=== PATIENT | female | born 1995 | race Caucasian/White ===

== ENCOUNTER 2018-11-27 20:43 | Emergency (ER) | payer BC, OTHER ==
[2018-11-27 20:53] VITALS: BP 149/86; PULSE 79; RESP 20; TEMP 99.1
[2018-11-27] MEDS ORDERED: cefTRIAXone 1,000 MG VIAL (IM USE) IM STA (21:33)
[2018-11-27] MEDS ORDERED: SULFAMETH-TMP DS STARTER PACK 2 TAB BTL PO STA (21:34)
--- NOTE | 2018-11-27 21:36 | ED ---
Skin/Abscess/FB HPI - General Chief complaint: Skin/Abscess/Foreign Body Stated complaint: Abscess on lt leg Time Seen by Provider: 11/27/18 21:15 Source: patient, family Mode of arrival: ambulatory Limitations: no limitations - History of Present Illness Initial comments: 23-year-old female no past medical history presents today for chief complaint of rash right lower thigh. Patient states that she did shave her legs last night, she states she woke up this morning she had a dime size area of erythema. Patient states over the day the redness has spread. Patient was concerned infection left work to present for evaluation. Patient denies any fever, chills, night sweats. She states the area is mildly itchy and tender to touch. She states it is warm to palpation. Patient denies history of MRSA. Patient denies any pain of the knee with range of motion of the knee. Patient denies any knee involvement. Area of erythema is just proximal to the knee joint. Patient outlined the area prior to presentation. Patient denies any recent antibiotics or hospitalizations. Review of system negative. Upon arrival patient appears well, nontoxic vital signs within acceptable limits. - Related Data Home Medications Medication Instructions Recorded Confirmed Escitalopram [Lexapro] 5 mg PO DAILY@1300 11/27/18 11/27/18 Previous Rx's Medication Instructions Recorded Cephalexin [Keflex] 500 mg PO Q6HR 7 Days #28 cap 11/27/18 Sulfamethox-Tmp 800-160Mg [Bactrim 1 tab PO Q12HR 7 Days #14 tab 11/27/18 DS 800-160 mg] Allergies Allergy/AdvReac Type Severity Reaction Status Date / Time No Known Allergies Allergy Verified 11/27/18 21:04 Review of Systems ROS Statement: Those systems with pertinent positive or pertinent negative responses have been documented in the HPI. ROS Other: All systems not noted in ROS Statement are negative. Past Medical History Past Medical History: No Reported History History of Any Multi-Drug Resistant Organisms: None Reported Past Surgical History: No Surgical Hx Reported Past Psychological History: Depression Smoking Status: Never smoker Past Alcohol Use History: None Reported Past Drug Use History: None Reported General Exam - General Exam Comments Initial Comments: General: The patient is awake and alert, in no distress, and does not appear acutely ill. Eye: Pupils are equal, round and reactive to light, extra-ocular movements are intact. No nystagmus. There is normal conjunctiva bilaterally. No signs of icterus. Ears, nose, mouth and throat: There are moist mucous membranes and no oral lesions. Neck: The neck is supple, there is no tenderness or JVD. Cardiovascular: There is a regular rate and rhythm. No murmur, rub or gallop is appreciated. Respiratory: Lungs are clear to auscultation, respirations are non-labored, breath sounds are equal. No wheezes, stridor, rales, or rhonchi. Musculoskeletal: Normal ROM, no tenderness. Strength 5/5. Sensation intact. Pulses equal bilaterally 2+. Neurological: A&O x 3. CN II-XII intact, There are no obvious motor or sensory deficits. Coordination appears grossly intact. Speech is normal. Skin: Skin is warm and dry and no rashes or lesions are noted. 5x5in area of erythema over the right anterior distal thigh, just proximal to the knee joint, no involvement of joint. Warm to palpation, no abscess. No break in skin. Blanchable. No crepitus to palpation of the skin. No bullae or vesicles. Area of erythema confluent. Psychiatric: Cooperative, appropriate mood & affect, normal judgment. Limitations: no limitations Course Vital Signs 11/27/18 20:51 Temperature 99.1 F Pulse Rate 79 Respiratory 20 Rate Blood Pressure 149/86 O2 Sat by Pulse 99 Oximetry Medical Decision Making - Medical Decision Making 23-year-old presenting with erythema of the right distal thigh. Findings consistent with cellulitis. Area outlined no erythema outside of outlined markers. Patient has no constitutional symptoms. Vital signs within acceptable limits, patient afebrile. Patient was given IM injection of ceftriaxone. Will be discharged with Keflex and Bactrim. Patient was given strict return parameters for immediate return for spreading of erythema outside of the line. Patient given starter pack of bactrim. Pt given outpatient RX for bactrim and keflex. A simple clearance of abiding by antibiotic instruction. Patient verbalized understanding. At this time feel patient is reliable and will return for any worsening symptoms. Patient appears well and nontoxic and is stable for outpatient treatment. I discussed the case with attending provider Dr. Gamboa who is agreeable with plan and discharge. Disposition Clinical Impression: Cellulitis of left lower extremity Disposition: HOME SELF-CARE Condition: Good Instructions (If sedation given, give patient instructions): Cellulitis (ED) Additional Instructions: Please use medication as discussed. Please follow-up with family doctor in the next 2 days. Please return to emergency room if the symptoms increase or worsen as discussed if the erythema extends outside the lines drawn this evening by tomorrow afternoon return immediately to the emergency department Prescriptions: Sulfamethox-Tmp 800-160Mg [Bactrim DS 800-160 mg] 1 tab PO Q12HR 7 Days #14 tab Cephalexin [Keflex] 500 mg PO Q6HR 7 Days #28 cap Is patient prescribed a controlled substance at d/c from ED?: No Referrals: Clayton Ho MD [Primary Care Provider] - 1-2 days Time of Disposition: 21:35
== END 2018-11-27 22:17 | disposition home or self-care (01) ==
LOC: EC 20:43
DX: L03.116 Cellulitis of left lower limb (principal); F32.9 Major depressive disorder, single episode, unspecified; Z79.899 Other long term (current) drug therapy
CPT/HCPCS: 99282; 96372; J0696

== ENCOUNTER 2018-11-28 01:34 | Emergency (ER) | payer BC ==
[2018-11-28 01:41] VITALS: BP 147/84; PULSE 71; RESP 20; TEMP 98.5
[2018-11-28] MEDS ORDERED: methylPREDNISolone SOD SUCCI 125 MG/2 ML VIAL IM ONE (02:03)
[2018-11-28] MEDS ORDERED: diphenhydrAMINE 50 MG CAP PO STA (02:03)
[2018-11-28] MEDS ORDERED: HYDROCORTISONE 1% CREAM 30 GM TUBE TOPICAL STA (02:05)
--- NOTE | 2018-11-28 02:05 | ED ---
Skin/Abscess/FB HPI - General Source: patient, family Mode of arrival: ambulatory Limitations: no limitations <Gladys De - Last Filed: 11/28/18 03:10> <Ina Renee - Last Filed: 11/28/18 03:37> - General Chief complaint: Skin/Abscess/Foreign Body Stated complaint: Recheck Abcess Time Seen by Provider: 11/28/18 01:48 - History of Present Illness Initial comments: 23-year-old female patient presents to the emergency department today for evaluation of worsening cellulitis. Patient was seen and evaluated here earlier today diagnosed with cellulitis to the left thigh. Patient was given an IM dose of antibiotics and discharged home. Patient states there was a line marked around the area of redness and was told to return if this in size. Patient states the redness has extended beyond the line so she presented for further evaluation. Patient states the area started as a dime-sized red area this morning and has gradually grown. Patient states the area is itchy and hot to touch. Patient denies any fevers or chills with this. States there is some clear drainage from the center of the lesion. Patient denies any recent shortness breath, chest pain, abdominal pain, nausea, vomiting, diarrhea, constipation, back pain, numbness, tingling, dizziness, weakness, hematuria, dysuria, urinary urgency, urinary frequency, headache, visual changes, or any other complaints. (Gladys De) - Related Data Home Medications Medication Instructions Recorded Confirmed Escitalopram [Lexapro] 5 mg PO DAILY@1300 11/27/18 11/27/18 Previous Rx's Medication Instructions Recorded Cephalexin [Keflex] 500 mg PO Q6HR 7 Days #28 cap 11/27/18 Sulfamethox-Tmp 800-160Mg [Bactrim 1 tab PO Q12HR 7 Days #14 tab 11/27/18 DS 800-160 mg] predniSONE 50 mg PO DAILY #3 tab 11/28/18 Allergies Allergy/AdvReac Type Severity Reaction Status Date / Time No Known Allergies Allergy Verified 11/28/18 01:42 Review of Systems ROS Other: All systems not noted in ROS Statement are negative. <Gladys De - Last Filed: 11/28/18 03:10> ROS Other: All systems not noted in ROS Statement are negative. <Ina Renee - Last Filed: 11/28/18 03:37> ROS Statement: Those systems with pertinent positive or pertinent negative responses have been documented in the HPI. Past Medical History Past Medical History: No Reported History History of Any Multi-Drug Resistant Organisms: None Reported Past Surgical History: No Surgical Hx Reported Past Psychological History: Depression Smoking Status: Never smoker Past Alcohol Use History: None Reported Past Drug Use History: None Reported <Gladys De M - Last Filed: 11/28/18 03:10> General Exam Limitations: no limitations General appearance: alert, in no apparent distress, other (This is a well- developed, well-nourished adult female patient in no acute distress. Vital signs upon presentation are temperature 98.5F, pulse 71, respirations 20, blood pressure 174/84, pulse ox 99% on room air.) Respiratory exam: Present: normal lung sounds bilaterally. Absent: respiratory distress, wheezes, rales, rhonchi, stridor Cardiovascular Exam: Present: regular rate, normal rhythm, normal heart sounds. Absent: systolic murmur, diastolic murmur, rubs, gallop, clicks Extremities exam: Present: full ROM, normal capillary refill, other (There is a large wheal noted to the left anterior thigh. There is central puncture with serous drainage. Area is raised and hot to touch. There is clear demarcation of the area. ). Absent: normal inspection, tenderness, pedal edema, joint swelling, calf tenderness Neurological exam: Present: alert, oriented X3, CN II-XII intact Psychiatric exam: Present: normal affect, normal mood Skin exam: Present: warm, dry, intact, normal color. Absent: rash <Gladys De M - Last Filed: 11/28/18 03:10> Course Vital Signs 11/28/18 01:38 Temperature 98.5 F Pulse Rate 71 Respiratory 20 Rate Blood Pressure 147/84 O2 Sat by Pulse 99 Oximetry Medical Decision Making <Gladys De M - Last Filed: 11/28/18 03:10> <Ina Renee P - Last Filed: 11/28/18 03:37> - Medical Decision Making 23-year-old female patient presents to the emergency department today for evaluation of increasing redness to a lesion to the left thigh. Physical examination does reveal a large wheal to the anterior left thigh. This is raised, erythematous, and hot to touch. This appears consistent with insect bite or sting. Patient states the area is itchy. We will administer benadryl and steroids. We will apply hydrocortisone cream. She does have antibiotic prescription, she is urged to continue this if the steroids and benadryl do not improve her symptoms, though cellulitis is unlikely given appearance of lesion. She is instructed to follow-up with her primary care physician for recheck in 1- 2 days. Return parameters discussed in detail. She verbalizes understanding and agrees with this plan. (Gladys De) I was available for consultation in the emergency department. The history and physical exam were done by the midlevel provider. I was consulted for this patient's care. I reviewed the case with the midlevel provider and based on their presentation of the patient, I agree with the assessment, medical decision making and plan of care as documented. (Ina Renee) Disposition Is patient prescribed a controlled substance at d/c from ED?: No Time of Disposition: 02:05 <Gladys De - Last Filed: 11/28/18 03:10> <Ina Renee - Last Filed: 11/28/18 03:37> Clinical Impression: Insect bite Disposition: HOME SELF-CARE Condition: Good Instructions (If sedation given, give patient instructions): Insect Bite or Sting (ED), General Allergic Reaction (ED) Additional Instructions: Continue Benadryl every 6 hours as needed. Complete antibiotics as prescribed. Follow-up with your primary care physician for recheck in 1-2 days. Return to the emergency department immediately for any new, worsening, or concerning symptoms. Prescriptions: predniSONE 50 mg PO DAILY #3 tab Referrals: Clayton Ho MD [Primary Care Provider] - 1-2 days
== END 2018-11-28 02:23 | disposition home or self-care (01) ==
LOC: EC 01:34
DX: S70.362A Insect bite (nonvenomous), left thigh, initial encounter (principal); L03.116 Cellulitis of left lower limb; F32.9 Major depressive disorder, single episode, unspecified; Z79.899 Other long term (current) drug therapy; W57.XXXA Bitten or stung by nonvenomous insect and other nonvenomous arthropods, initial encounter
CPT/HCPCS: 96372; 99282

== ENCOUNTER → 2023-01-31 | Outpatient (CLI) | payer BC ==
--- NOTE | 2023-01-31 20:27 | CT ---
EXAMINATION TYPE: CT chest wo con CT DLP: 401.90 mGycm, Automated exposure control for dose reduction was used. DATE OF EXAM: 01/31/2023 6:25 PM COMPARISON: None CLINICAL INDICATION:Female, 27 years old with history of R10.32 LEFT LOWER QUADRANT PAIN, R06.00 DYSP MARY, U; PHH, CLIVE, left side abdominal/pelvis pain that radiates to the back. TECHNIQUE: Multiple axial images were obtained through the chest without IV contrast. Lack of IV or o ral contrast limits evaluation of solid and hollow organ viscera. . Coronal and sagittal reformats re viewed. FINDINGS: LUNGS/ PLEURA: No pleural effusion, pneumothorax, focal consolidation. No suspicious pulmonary nodule or mass. AIRWAY: Patent and unremarkable.. HEART: Size within normal limits. No pericardial effusion. MEDIASTINUM: No gross evidence of adenopathy. VASCULATURE: No aortic aneurysm. MUSCULOSKELETAL: No acute osseous abnormalities SOFT TISSUES/LYMPH NODES: Unremarkable. LOWER NECK: No significant findings. UPPER ABDOMEN: Please refer to dedicated CT abdomen pelvis of same day for findings. IMPRESSION: No acute thoracic process.
--- NOTE | 2023-01-31 20:31 | CT ---
EXAMINATION TYPE: CT abdomen pelvis w con CT DLP: 1206.4. mGycm, Automated exposure control for dose reduction was used. DATE OF EXAM: 01/31/2023 6:25 PM COMPARISON: None CLINICAL INDICATION:Female, 27 years old with history of R10.32 LEFT LOWER QUADRANT PAIN, R06.00 DYSP MARY, U; CLIVE, left side abdominal/pelvis pain that radiates to the back. NEG HCG TECHNIQUE: Standard CT of the abdomen and pelvis following the administration of 100 cc of Isovue 3 00 IV contrast material and oral contrast. Coronal and sagittal reformats were performed. FINDINGS: LOWER CHEST: Please see dedicated CT chest for findings ABDOMEN LIVER: Unremarkable GALLBLADDER AND BILE DUCTS: Unremarkable. PANCREAS: Unremarkable. SPLEEN: Unremarkable. ADRENAL GLANDS: Unremarkable. KIDNEYS AND URETERS: No evidence of hydronephrosis or renal calculus. The kidneys enhance symmetrical ly. Subcentimeter hypodense focus within the right mid kidney which is too small accurately character ize but likely represents a cyst. Contrast is demonstrated within both collecting systems on the sangita yed phase. PELVIS BLADDER: Unremarkable REPRODUCTIVE: Unremarkable. ABDOMEN & PELVIS STOMACH AND BOWEL: Stomach and duodenum are unremarkable. Distal colonic diverticulosis most prominen t within the sigmoid colon without evidence for acute diverticulitis. The appendix is within normal l imits. Enteric contrast reaches the mid small bowel. No focal bowel wall thickening or surrounding in flammatory changes No evidence of bowel obstruction. PERITONEUM: No evidence of pneumoperitoneum or free fluid. VASCULATURE: No evidence of aortic aneurysm. MUSCULOSKELETAL: No acute osseous abnormalities LYMPH NODES: No gross evidence for lymphadenopathy. SOFT TISSUE/ABDOMINAL WALL: Unremarkable IMPRESSION: 1. No acute abdominal/pelvic process. 2. Colonic diverticulosis without evidence for acute diverticulitis.
[2023-02-01 02:12] LABS: HCT 40.5 % (37.2-46.3); HGB 13.2 g/dL (12.0-15.0); MCH 29.1 pg (27.0-32.0); MCHC 32.6 g/dL (32.0-37.0); MCV 89.2 fL (80.0-97.0); Mean Platelet Volume 11.2 fL (9.5-12.2); NRBC Per 100 WBC 0 /100 WBCS (0.0-0.0); Platelet Count 280 X 10*3/uL (140-440); RBC 4.54 X 10*6/uL (4.10-5.20); RDW 13.1 % (11.5-14.5); WBC 17.93 X 10*3/uL (4.50-10.00)
[2023-02-01 02:38] LABS: African American GFR (CKD) 143.8 (60.0-200.0); Albumin 4.8 g/dL (3.8-4.9); Albumin/Globulin Ratio 1.85 (1.60-3.17); Anion Gap 16.7 mmol/L (10.00-18.00); BUN/Creat Ratio 15.83 Ratio (12.00-20.00); Blood Urea Nitrogen 9.5 mg/dL (9.0-27.0); C Reactive Protein 3.8 mg/dL (0.00-0.80); Calcium 9.4 mg/dL (8.7-10.3); Carbon Dioxide 23.3 mmol/L (20.0-27.5); Globulin 2.6 g/dL (1.6-3.3); Potassium 3.7 mmol/L (3.5-5.5); Total Bilirubin 0.3 mg/dL (0.30-1.20); Total Protein 7.4 g/dL (6.2-8.2)
[2023-02-01 05:10] LABS: Erythrocyte Sedimentation Rate 7 mm/Hr (0-20)
== END | disposition home or self-care (01) ==
LOC: RADCTMAIN 16:28
PROVIDERS: ATTEND Family Medicine
DX: K57.30 Diverticulosis of large intestine without perforation or abscess without bleeding (principal); R10.32 Left lower quadrant pain; R06.00 Dyspnea, unspecified
CPT/HCPCS: 80053; 85652; 85027; 86140; 71250; 74177; 36415; Q9967

== ENCOUNTER → 2023-08-09 | Outpatient (CLI) | payer BC ==
--- NOTE | 2023-08-09 10:44 | USB ---
Reason for Exam: Clinical finding. Technique: Method: Targeted. Findings: The area of palpable concern of the left breast, the axilla of the left breast and the retroareolar of the left breast were scanned. Probable elongated sebaceous cyst measuring 1.8 x 1.0 x 0.5 cm. Clinical correlation recommended and follow-up advised in 6-8 weeks. Overall Assessment: Probably benign, BI-RAD 3 Management: Diagnostic Breast Ultrasound of the left breast in 2 months. A clinical breast exam by your physician is recommended on an annual basis and results should be correlated with mammographic findings. This exam should not preclude additional follow-up of suspicious palpable abnormalities. Results were given to the patient verbally at the time of exam. Electronically signed and approved by: Tim Marti M.D. Radiologis
== END | disposition home or self-care (01) ==
LOC: RADUSWWP 09:59
PROVIDERS: ATTEND Obstetrics & Gynecology
DX: N63.20 Unspecified lump in the left breast, unspecified quadrant (principal)

== ENCOUNTER → 2023-10-11 | Outpatient (CLI) | payer BC ==
--- NOTE | 2023-10-11 10:40 | USB ---
Reason for Exam: Follow-up at short interval from prior study. Technique: Method: Targeted. Findings: The upper outer quadrant of the left breast, the axilla of the left breast and the retroareolar of the left breast were scanned. No solid or cystic masses are identified.. Overall Assessment: Negative, BI-RAD 1 Management: Screening Mammogram of both breasts at age 39. A clinical breast exam by your physician is recommended on an annual basis and results should be correlated with mammographic findings. This exam should not preclude additional follow-up of suspicious palpable abnormalities. Results were given to the patient verbally at the time of exam. Electronically signed and approved by: Tim Marti M.D. Radiologis
== END | disposition home or self-care (01) ==
LOC: RADUSWWP 10:10
PROVIDERS: ATTEND Obstetrics & Gynecology
DX: R92.8 Other abnormal and inconclusive findings on diagnostic imaging of breast (principal)

== ENCOUNTER 2025-03-04 09:30 | Day surgery (SDC) | payer BC ==
[2025-03-04] MEDS: IV FLUID CONTINUATION 1,000 ML IV ONE (10:11)
[2025-03-04 10:26] VITALS: TEMP 97.3
[2025-03-04] MEDS: LACTATED RINGERS 1,000 ML IV SCH (10:26)
[2025-03-04] MEDS ORDERED: PROPOFOL 10 MG/ML 20 ML VIAL IV ONE (11:00)
--- NOTE | 2025-03-04 11:17 | P.PCN ---
Date of Procedure: 03/04/25 Procedure(s) Performed: BRIEF HISTORY: Patient is a 29-year-old pleasant white female scheduled for an elective colonoscopy as a part of screening for colon cancer. 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 She does have strong family's of colon cancer diagnosed in her aunt, uncle and maternal grandmother all in the 60s. PROCEDURE PERFORMED: Colonoscopy. PREOPERATIVE DIAGNOSIS: Personal history of Brown syndrome. IV sedation per Anesthesia. PROCEDURE: After informed consent was obtained, the patient, was brought into the endoscopy unit. IV sedation was administered by Anesthesia under continuous monitoring. Digital rectal examination was normal. Initially the Olympus CF-160 flexible video colonoscope was then inserted in the rectum, gradually advanced into the cecum without any difficulty. Careful examination was performed as the scope was gradually being withdrawn. Ileocecal valve and the appendiceal orifice were visualized and appeared normal. Prep was excellent. Mucosa of the cecum, ascending colon, transverse colon, descending colon, sigmoid colon, and rectum appeared normal. Retroflexion was performed in the rectum and no lesions were seen. The patient tolerated the procedure well. IMPRESSION: Normal-appearing colon from rectum to cecum with no evidence of colorectal neoplasia. RECOMMENDATIONS: Findings of this examination were discussed with the patient as well as her family. She was advised to have repeat colonoscopy every 1 to 2 years and upper endoscopy every 5 years as a part of evaluation of Brown syndrome.
[2025-03-04 11:39] VITALS: BP 140/90; PULSE 66; RESP 16
== END 2025-03-04 12:04 ==
LOC: ORWHC2ENDO 09:30
PROVIDERS: ATTEND Internal Medicine Gastroenterology
DX: Z12.11 Encounter for screening for malignant neoplasm of colon (principal); F32.A Depression, unspecified; Z80.0 Family history of malignant neoplasm of digestive organs; Z85.038 Personal history of other malignant neoplasm of large intestine
CPT/HCPCS: 81025; 45378; J2704